=== PATIENT | female | born 1975 | race Caucasian/White ===

== ENCOUNTER 2024-02-11 19:07 | Emergency (ER) | payer MEDICAID, SELFPAY ==
[2024-02-11 19:07] VITALS: BMI 31.4
[2024-02-11 19:18] VITALS: BP 128/84; PULSE 109; RESP 18; TEMP 37.2; O2SAT 97
--- NOTE | 2024-02-11 19:37 | EDRME_ITS ---
Rapid Medical Screening Exam [facility] Arrival date/time: 02/11/24 19:07 49F with history of DM and recurrent skin abscesses presents to ED with abscess behind R ear for 3 days. Chief Complaint: Skin/Abscess/Foreign Body Vital signs: Vital Signs Temperature 98.9 F 02/11/24 19:18 Pulse Rate 109 H 02/11/24 19:18 Respiratory Rate 18 02/11/24 19:18 Blood Pressure 128/84 02/11/24 19:18 Pulse Oximetry (%) 97 02/11/24 19:18 Oxygen Delivery Method Room Air 02/11/24 19:18
--- NOTE | 2024-02-11 21:42 | XR_ITS ---
Examination: CT soft tissue neck, with intravenous contrast. 2-D coronal reconstructions. 2-D sagittal reconstructions. Date and time of exam :February 12, 2024 at 1228 hrs. Indications: Soft tissue swelling behind the right ear CTDI: vol (mGy):11.5 DLP: (mGycm):277 Technique: 1.25 mm axial sections of the neck of the obtained. Coronal and sagittal reconstructions have been obtained. Intravenous contrast administered 50 cc Isovue-370. Low dose protocols were performed. One or more of the following dose reduction techniques were used; automated exposure control, adjustment of the mA and/or KV according to patient size, use of iterative reconstruction technique. Findings: Extensive soft tissue infection posterior to the right ear and posterior to the right occipital bone The soft tissue infection extends up to the right parotid gland with multiple reactive lymph nodes in the right carotid triangle right submental right posterior cervical region this information does involve the right sternoclavicular muscle No yves cortical bone destruction Symmetrical nasopharynx oropharynx The larynx appears normal Impression: Extensive soft tissue infection primarily posterior to the right ear and posterior to the right occipital bone extending up to the right parotid gland with multiple reactive lymph nodes Recommend ultrasound soft tissue at this area of concern follow-up
--- NOTE | 2024-02-11 21:47 | EDNOTE_ITS ---
ED Skin Abcess FB-RME/HPI General Chief complaint: Skin/Abscess/Foreign Body Stated complaint: ABSCESS BEHIND RT EAR X 3DAYS Time Seen by Provider: 02/11/24 21:38 Arrival date/time: 02/11/24 19:07 RME / HPI RME / HPI narrative: 49-year-old female patient with significant history of diabetes mellitus, came in for evaluation regarding swelling and tenderness right postauricular area. This been ongoing for the last 3 days, getting worse, at this time associated with tenderness, not feeling well, and chills. Patient was seen by PCP yesterday and was started on clindamycin and Keflex. Patient been taking it with no relief. Patient denies any difficulty swallowing. Denies any other complaints or medications taken prior to arrival. Related Data Home Medications ?Medication ?Instructions ?Recorded ?Confirmed empagliflozin 25 mg tablet 25 mg PO QDAY 10/16/22 10/16/22 (Jardiance) Previous Rx's ?Medication ?Instructions ?Recorded clindamycin HCl 300 mg capsule 300 mg PO Q6H #30 caps 02/12/24 Allergies Allergy/AdvReac Type Severity Reaction Status Date / Time Penicillins Allergy Severe Hives Verified 10/16/22 10:20 sulfamethoxazole Allergy Severe Altered Verified 10/16/22 10:20 [From Bactrim] Sense of Taste trimethoprim [From Bactrim] Allergy Severe Altered Verified 10/16/22 10:20 Sense of Taste Review of Systems Review of Systems Narrative Review of Systems: Review of system reviewed and within normal limits except mentioned in HPI ED Exam Narrative Physical exam: VITAL SIGNS: Reviewed. GENERAL APPEARANCE: Alert and interactive, follows commands, no acute distress, HEAD AND FACE: 6 x 8 cm swelling, redness, postauricular area, with mild necrosis in the center, none crepitus with tenderness nonfluctuant ENT: PERRL, pink conjunctivitis, eyelid no trauma, Mucous membrane moist. NECK: Supple, nontender, no nuchal rigidity. CHEST: No tenderness, no crepitus, no paradoxical movement, no retractions. LUNGS: Clear, well ventilated, symmetric, no rales, no wheezing, no ronchi, no stridor, good breath sounds bilaterally. HEART: Regular rate, regular rhythm, no murmur, no gallops. ABDOMEN: Soft, positive bowel sounds, nondistended, no guarding, nontender, no rebound, no masses, RECTAL: Deferred. GENITAL: Deferred. NEUROLOGICAL: Gross motor function intact sensory function intact, Appropriate for age. MUSCULOSKELETAL: low back nontender, full range of motion. EXTREMITIES: Nontender, full range of motion. SKIN: Color pink, dry, no rash, no lacerations, no abrasions, no contusions. LYMPHATICS: Deferred. Course Quality Measures none Orders Category Date Time Status CT Screening NOW Care 02/11/24 21:43 Completed Incision and Drainage Set Up X1 Care 02/11/24 19:[address] head/brain wo con Stat Exams 02/11/24 23:[address] soft tissue neck w con Stat Exams 02/11/24 21:42 Completed Blood Culture (Lab) Stat Lab 02/11/24 22:02 Received CBC [CBC] Stat Lab 02/11/24 21:57 Completed CMP [Comprehensive Metabolic Panel] Stat Lab 02/11/24 21:57 Results CRP [C-Reactive Protein] Stat Lab 02/11/24 21:57 Results ESR [Sed Rate (ESR)] Stat Lab 02/11/24 21:57 Completed Lactate (Lactic Acid) Stat Lab 02/11/24 22:02 Completed Procalcitonin Stat Lab 02/11/24 21:57 Results Wound Culture and Gram Stain Stat Lab 02/12/24 07:29 Received HYDROcodone*/APAP 5/325 [[facility] 5/325] Med 02/12/24 00:06 Discontinued 1 tab PO X1 ONE Piper/Tazo 3.375 gm [Zosyn] Med 02/11/24 21:47 Discontinued 3.375 gm in 50 ml IV X1 Sodium Chloride 0.9% 1000 ml [Ns] 1,000 ml Med 02/12/24 02:58 Discontinued IV 999 mls/hr Vancomycin Inj 1,000 mg Med 02/11/24 21:45 Discontinued Sodium Chloride 0.9% 250 ml [Ns] 250 ml IV X1 Vital Signs Vital signs: Vital Signs Temperature 98.9 F 02/11/24 19:18 Pulse Rate 109 H 02/11/24 19:18 Respiratory Rate 18 02/11/24 19:18 Blood Pressure 128/84 02/11/24 19:18 Pulse Oximetry (%) 97 02/11/24 19:18 Oxygen Delivery Method Room Air 02/11/24 19:18 Skin / Abscess / Foreign Body MDM Narrative MDM Narrative:: 49-year-old female patient with significant history of diabetes mellitus, came in for evaluation regarding swelling and tenderness right postauricular area. This been ongoing for the last 3 days, getting worse, at this time associated with tenderness, not feeling well, and chills. Patient was seen by PCP yesterday and was started on clindamycin and Keflex. Patient been taking it with no relief. Patient denies any difficulty swallowing. Denies any other complaints or medications taken prior to arrival. Patient received IV vancomycin and IV Zosyn. Care transferred to Dr. Rodriguez for final management pending CT scan results Patient data External records reviewed:: None Clinical information provided by:: none Social determinants that could affect healthcare access:: none Patient has the following chronic illnesses:: Diabetes mellitus How is presenting disease/condition affected by chronic disease/condition?: uneffected by Evaluation data The following diagnostics were reviewed and interpreted by me:: lab results and radiology exam(s) Lab and/or radiology exams considered but not ordered:: None Interpretation Summary: Pending results Medications / Prescriptions Medications or Prescriptions considered but not ordered:: None Medication administrations:: Medication Administration History Discontinued Medications Hydrocodone Bitart/Acetaminophen (Hydrocodone/Apap 5/325 Tablet) 1 tab PO X1 ONE Stop: 02/12/24 00:07 Last Admin: 02/12/24 00:48 Dose: 1 tab Documented By: SARAH Vancomycin HCl 1,000 mg/ (Sodium Chloride) 250 mls @ 150 mls/hr IV X1 ONE Stop: 02/11/24 23:24 Last Infusion: 02/12/24 00:30 Dose: Infused Documented By: Admin: 02/11/24 22:43 Dose: 150 mls/hr Documented By: PRESTON Piperacillin/Tazobactam/Dextrose (Zosyn) 3.375 gm in 50 mls @ 100 mls/hr IV X1 ONE Stop: 02/11/24 22:16 Last Infusion: 02/11/24 22:42 Dose: Infused Documented By: Admin: 02/11/24 22:05 Dose: 100 mls/hr Documented By: PRESTON Sodium Chloride (Ns) 1,000 mls @ 999 mls/hr IV .Q1H1M ONE Stop: 02/12/24 03:58 Last Infusion: 02/12/24 06:00 Dose: Infused Documented By: Admin: 02/12/24 04:16 Dose: 999 mls/hr Documented By: IV Vanco and IV Zosyn. Was also given [facility] Mary and IV fluids Consultations Consultation(s) initiated? (list below): Yes Consultation #1 (Physician, Specialty, Details): Pending final disposition Diagnosis Skin/Abscess Differential Diagnosis: abscess of skin or subcutaneous tissue, cellulitis and contact dermatitis Most likely diagnosis given after review of the tests above:: Cellulitis/abscess postauricular area Admission Indicated Admission indicated?: not indicated Admission Request Was there a request for admission?: No Disposition Plan Disposition Plan: other (specify) Discharge Plan Plan Patient Disposition: HOME (Self Care) Patient condition on transfer: Stable Prescriptions/Referrals Prescriptions/Med Rec: New clindamycin HCl 300 mg capsule 300 mg PO Q6H Qty: 30 0RF No Action Jardiance 25 mg tablet 25 mg PO QDAY Referrals: Tee Belle MD [Primary Care Provider] - In 1 week Problem List Clinical Impression: Abscess Patient/Caregiver Discharge Instructions Education Materials: ED Abscess Antibiotic ... Print Language: French Stand Alone Forms: Leia Award Info., Patient Portal Info Letter
[2024-02-11] MEDS: PIPER/TAZO 3.375 GM 3.375 GM/50 ML BAG IV (22:05)
[2024-02-11 22:06] VITALS: BP 151/93; PULSE 102; RESP 20; TEMP 37.4; O2SAT 99
[2024-02-11 22:12] LABS: Lactate (Lactic Acid) 1.6 mMol/L (0.4-2.0)
[2024-02-11 22:18] LABS: Basophils % (Auto) 0 % (0-2.5); Eosinophils # (Auto) 0.1 Thou/mm3 (0.0-0.5); Eosinophils % (Auto) 0 % (0-10); Hematocrit 36.2 % (36.0-46.0); Hemoglobin 12.7 g/dL (12.0-16.0); Immature Granulocytes % (Auto) 1 % (0-0); Immature Granulocytes Auto 0.08 Thou/mm3 (0.00-0.00); Lymphocytes # (Auto) 1.2 Thou/mm3 (1.0-4.8); Lymphocytes % (Auto) 9 % (10-50); Mean Corpuscular HGB Conc 35.1 g/dl (31.0-37.0); Mean Corpuscular Hemoglobin 30.6 pg (25.0-35.0); Mean Corpuscular Volume 87 fL (80-100); Monocytes # (Auto) 1.2 Thou/mm3 (0.0-0.8); Monocytes % (Auto) 9 % (0-12); Neutrophils # (Auto) 11.5 Thou/mm3 (1.8-7.7); Neutrophils % (Auto) 82 % (37-80); Nucleated Red Blood Cell % 0 /100 WBC (0); Platelet Count 239 Thou/mm3 (140-440); RDW Standard Deviation 39.8 fL (36.4-46.3); Red Blood Count 4.15 Miln/mm3 (4.00-5.20); White Blood Count 14.1 Thou/mm3 (3.6-11.0)
[2024-02-11] MEDS: Vancomycin Inj 1,000 MG in SODIUM CHLORIDE 0.9% 250 ML 250 ML 150 MG IV (22:43)
[2024-02-11 23:00] LABS: Sed Rate (ESR) 105 mm/hr (0-30)
--- NOTE | 2024-02-11 23:06 | XR_ITS ---
Examination: CT brain head without contrast. 2-D sagittal coronal reconstructions Date and time of exam:February 12, 2024 0025 hrs. Indications: Redness swelling and pain behind the right ear beginning 4 days ago CTDI: vol (mGy):52.5 DLP: (mGycm):1042 Technique: Multiple CT axial sections of the brain have been obtained, 5 mm slice thickness. Contrast has not been administered. 2-D sagittal, coronal reconstructions have been obtained Low dose protocols were performed. One or more of the following dose reduction techniques were used; automated exposure control, adjustment of the mA and/or KV according to patient size, use of iterative reconstruction technique. Findings: No significant ventricular enlargement. Intra-axial or extra-axial hemorrhage density is not seen. No mass effect or midline shift Basal cisterns are not remarkable. Fourth ventricle is midline. Cranial vault intact. Extensive soft tissue swelling about the right ear, suspicious for early abscess axial image 39 in the soft tissue posterior to the right ear 17 x 12 mm Impression: Negative for acute hemorrhage, mass effect or midline shift Extensive cellulitis soft tissue swelling about the right ear, suspicious for early right ear abscess 17 x 20 mm, recommend ultrasound soft tissue at this area of concern follow-up
[2024-02-11 23:26] LABS: Alanine Aminotransferase 26 U/L (10-49); Albumin, Serum 4.4 gm/dL (3.5-5.0); Albumin/Globulin Ratio 1.3 (1.2-2.2); Alkaline Phosphatase 103 U/L (46-116); Anion Gap 9 (7-16); Aspartate Amino Transferase 23 U/L (0-34); BUN/Creatinine Ratio 18 Ratio (12-20); Bilirubin,Total 0.4 mg/dL (0.3-1.2); Blood Urea Nitrogen 14 mg/dL (9-23); Calcium 9.8 mg/dL (8.3-10.6); Calcium (Corrected) 9.8 mg/dL (8.5-10.1); Carbon Dioxide 22.9 mMol/L (20.0-31.0); Chloride 98 mMol/L (98-107); Creatinine (Component) 0.8 mg/dL (0.6-1.3); Estimated Creatinine Clearance 86.7 mL/min (>60); Globulin 3.4 gm/dL (2.3-3.5); Glucose 391 mg/dL (74-106); Osmolality,Calculated 277 (275-295); Potassium 3.7 mMol/L (3.4-5.1); Procalcitonin 0.07 ng/ml (0.0-0.49); Sodium 130 mMol/L (136-145); Total Protein 7.8 gm/dL (5.7-8.2); eGFR > 60 See Note
--- NOTE | 2024-02-11 23:50 | PC.NURSE ---
Pt reports to the er with c/o swelling behind the rt ear extending down to her neck for the past 3 days. Pt states she was seen by her primary dr and was given abx, but pt noted no relief. pt stats she symptoms of not feeling well and chills. pt presents to er able to speak full sentences, ginna any difficulty swallowing. pt placed on vital machine monitoring. pt updated on plan of care. Call light within reach.
[2024-02-12] MEDS: HYDROcodone/APAP 5/325 TABLET 1 TAB PO (00:48)
[2024-02-12 00:53] VITALS: BP 152/88; PULSE 104; RESP 16; TEMP 36.9; O2SAT 97
--- NOTE | 2024-02-12 01:28 | PRELIM_ITS ---
CT scan of the head without intravenous contrast (axial sections with sagittal and coronal reformats) February 12, 2024 0025 hoursClinical History: Right postauricular massComparison: No prior study is available for comparison. Findings:There is no evidence of intracranial hemorrhage, mass effect or mi dline shift. There is mild volume loss. Basal ganglia calcifications are present bilaterally. The cholo varium is unremarkable. There is partial opacification of the bilateral mastoid air cells. There is m ild mucosal thickening in the bilateral maxillary sinuses. The other visualized paranasal sinuses are clear. There is extensive cellulitis in the right preauricular region (partially imaged).Impression: No evidence of intracranial hemorrhage, mass effect or midline shift. Extensive cellulitis in the rig ht preauricular region as describedOther findings as described above. Report Electronically Signed Marck billings: Shane Ramos 02/12/2024 1:27:59 AM [EST]
--- NOTE | 2024-02-12 01:29 | PRELIM_ITS ---
CT scan of the neck with intravenous contrast (axial sections with sagittal and coronal reformats) No vember 2023 at 0028 hours Clinical History: Right postauricular swelling, tenderness and redness. Comparison: No prior study is available for comparison. Findings:The nasopharynx, oropharynx, hypoph arynx, supraglottic and infraglottic larynx, vocal cords and upper trachea are unremarkable. The epig lottis and aryepiglottic folds appear unremarkable.No enhancing lesion is identified. The vessels of the neck are well opacified. No filling defect is seen. Degenerative changes are identified in the sp ine. There is a complex hypodense fluid collection measuring 1.2 x 1 cm in the right sternocleidomast oid muscle (axial image 15/73), likely phlegmon/evolving abscess. There is extensive fat stranding an d edema in the posterior subcutaneous soft tissues of the right periauricular region and right mechanical technologist ior muscles of the neck. The right parotid gland appears edematous, likely reactive. There are multip le adjacent prominent lymph nodes , the largest measuring 1.1 x 0.7 cm (axial image 33/73). There is a subcentimeter calcification in the left lobe of thyroid. There is mild mucosal thickening in bilate ral maxillary sinuses.Impression:Findings suggestive of phlegmon/evolving abscess in the right sterno cleidomastoid muscle with adjacent cellulitis and reactive parotitis as described. No evidence of galina inable fluid collectionOther findings as described above. Discussion Details: Results verbally comm unicated to [facility] Charge Nurse at 04:27 AM ET 12/02/2024. A call back number is provided to f acilitate direct [id number] communication. Report Electronically Signed By: Shane Ramos 02/12/2024 1:29:05 AM [EST]
--- NOTE | 2024-02-12 02:52 | PD.EDADDENDU ---
Emergency Room Addendum <May Belle - Last Filed: 02/12/24 05:27> Addendum Narrative: 2300: Care assumed from Pancho Garcia NP. Past medical, surgical, social and family history reviewed. Vitals and home medications reviewed. Results and treatment plan discussed. I will assume the care of the patient at this time and will follow the patient, pending CTs, labs, and final disposition. Please refer to the emergency department record for history and examination from initial visit. Dr. Rodriguez's Note: RADIOLOGY RESULTS: [facility] Preliminary Report Draft Patient: ABDULAZIZ MOSELEY. Record#: [id number] Birthdate: 1975 Age/Sex: 49 / F Location: [facility] Attending Dr: Ordering Physician: Date of Service: Procedure(s): Accession Number(s): cc: ~ CT scan of the head without intravenous contrast (axial sections with sagittal and coronal reformats) February 12, 2024 0025 hours Clinical History: Right postauricular mass Comparison: No prior study is available for comparison. Findings: There is no evidence of intracranial hemorrhage, mass effect or midline shift. There is mild volume loss. Basal ganglia calcifications are present bilaterally. The calvarium is unremarkable. There is partial opacification of the bilateral mastoid air cells. There is mild mucosal thickening in the bilateral maxillary sinuses. The other visualized paranasal sinuses are clear. There is extensive cellulitis in the right preauricular region (partially imaged). Impression: No evidence of intracranial hemorrhage, mass effect or midline shift. Extensive cellulitis in the right preauricular region as described Other findings as described above. Report Electronically Signed By: Shane Ramos 02/12/2024 1:27:59 AM [EST] Telerad Preliminary Report Draft Patient: ABDULAZIZ MOSELEY. Record#: [id number] Birthdate: 1975 Age/Sex: 49 / F Location: [facility] Attending Dr: Ordering Physician: Date of Service: Procedure(s): Accession Number(s): cc: ~ CT scan of the neck with intravenous contrast (axial sections with sagittal and coronal reformats) February 12, 2024 at 0028 hours Clinical History: Right postauricular swelling, tenderness and redness. Comparison: No prior study is available for comparison. Findings: The nasopharynx, oropharynx, hypopharynx, supraglottic and infraglottic larynx, vocal cords and upper trachea are unremarkable. The epiglottis and aryepiglottic folds appear unremarkable. No enhancing lesion is identified. The vessels of the neck are well opacified. No filling defect is seen. Degenerative changes are identified in the spine. There is a complex hypodense fluid collection measuring 1.2 x 1 cm in the right sternocleidomastoid muscle (axial image 15/73), likely phlegmon/evolving abscess. There is extensive fat stranding and edema in the posterior subcutaneous soft tissues of the right periauricular region and right posterior muscles of the neck. The right parotid gland appears edematous, likely reactive. There are multiple adjacent prominent lymph nodes , the largest measuring 1.1 x 0.7 cm (axial image 33/73). There is a subcentimeter calcification in the left lobe of thyroid. There is mild mucosal thickening in bilateral maxillary sinuses. Impression: Findings suggestive of phlegmon/evolving abscess in the right sternocleidomastoid muscle with adjacent cellulitis and reactive parotitis as described. No evidence of drainable fluid collection Other findings as described above. Discussion Details: Results verbally communicated to [facility] Charge Nurse at 04:27 AM ET 12/02/2024. A call back number is provided to facilitate direct [id number] communication. Report Electronically Signed By: Shane Ramos 02/12/2024 1:29:05 AM [EST] <Petar Rodriguez MD - Last Filed: 02/12/24 05:27> Addendum Narrative: 2300: Care assumed from Pancho Garcia NP. Past medical, surgical, social and family history reviewed. Vitals and home medications reviewed. Results and treatment plan discussed. I will assume the care of the patient at this time and will follow the patient, pending CTs, labs, and final disposition. Please refer to the emergency department record for history and examination from initial visit. Dr. Rodriguez's Note: At 5:15 AM, I discussed this case with [facility] transfer center and she provided a ENT doctor who will look at her films and he will decide what to do with her. They will call us back and let us know. RADIOLOGY RESULTS: Teler[facility] Preliminary Report Draft Patient: ABDULAZIZ MOSELEY Record#: [id number] Birthdate: 1975 Age/Sex: 49 / F Location: [facility] Attending Dr: Ordering Physician: Date of Service: Procedure(s): Accession Number(s): cc: ~ CT scan of the head without intravenous contrast (axial sections with sagittal and coronal reformats) February 12, 2024 0025 hours Clinical History: Right postauricular mass Comparison: No prior study is available for comparison. Findings: There is no evidence of intracranial hemorrhage, mass effect or midline shift. There is mild volume loss. Basal ganglia calcifications are present bilaterally. The calvarium is unremarkable. There is partial opacification of the bilateral mastoid air cells. There is mild mucosal thickening in the bilateral maxillary sinuses. The other visualized paranasal sinuses are clear. There is extensive cellulitis in the right preauricular region (partially imaged). Impression: No evidence of intracranial hemorrhage, mass effect or midline shift. Extensive cellulitis in the right preauricular region as described Other findings as described above. Report Electronically Signed By: Shane Ramos 02/12/2024 1:27:59 AM [EST] Telerad Preliminary Report Draft Patient: ABDULAZIZ MOSELEY Record#: [id number] Birthdate: 1975 Age/Sex: 49 / F Location: [facility] Attending Dr: Ordering Physician: Date of Service: Procedure(s): Accession Number(s): cc: ~ CT scan of the neck with intravenous contrast (axial sections with sagittal and coronal reformats) February 12, 2024 at 0028 hours Clinical History: Right postauricular swelling, tenderness and redness. Comparison: No prior study is available for comparison. Findings: The nasopharynx, oropharynx, hypopharynx, supraglottic and infraglottic larynx, vocal cords and upper trachea are unremarkable. The epiglottis and aryepiglottic folds appear unremarkable. No enhancing lesion is identified. The vessels of the neck are well opacified. No filling defect is seen. Degenerative changes are identified in the spine. There is a complex hypodense fluid collection measuring 1.2 x 1 cm in the right sternocleidomastoid muscle (axial image 15/73), likely phlegmon/evolving abscess. There is extensive fat stranding and edema in the posterior subcutaneous soft tissues of the right periauricular region and right posterior muscles of the neck. The right parotid gland appears edematous, likely reactive. There are multiple adjacent prominent lymph nodes , the largest measuring 1.1 x 0.7 cm (axial image 33/73). There is a subcentimeter calcification in the left lobe of thyroid. There is mild mucosal thickening in bilateral maxillary sinuses. Impression: Findings suggestive of phlegmon/evolving abscess in the right sternocleidomastoid muscle with adjacent cellulitis and reactive parotitis as described. No evidence of drainable fluid collection Other findings as described above. Discussion Details: Results verbally communicated to [facility] Charge Nurse at 04:27 AM ET 12/02/2024. A call back number is provided to facilitate direct [id number] communication. Report Electronically Signed By: Shane Ramos 02/12/2024 1:29:05 AM [EST]
[2024-02-12] MEDS: SODIUM CHLORIDE 0.9% 1000 ML 1,000 ML 999 ML IV (04:16)
[2024-02-12 05:26] VITALS: BP 129/80; PULSE 99; RESP 17; TEMP 36.8; O2SAT 96
--- NOTE | 2024-02-12 06:30 | PC.NURSE ---
0343 MICHELLE CONTACTED , NO EMT SERVICES. 0400 [facility] CONTACTED PKT SENT, IMAGES PUSHED OVER.
--- NOTE | 2024-02-12 07:05 | PC.NURSE ---
Addendum entered by Milvia Wells RN 02/12/24 07:31: per report, pt is pending transfer for ENT specialist. Original Note: Report received from Kaela ACHARYA; per report, pt initial complaint of bump to R-side neck. Pt states that it's gotten worse since Thursday. CT imaging showed cellulitis on pt's R sternocleidomastoid. Pt has hx of DM and non-compliant with medications and unable to give accurate home meds list. Pt laying in bed quietly at this time;no acute distress noted.
--- NOTE | 2024-02-12 07:08 | EDNOTE_ITS ---
Emergency Room Addendum Addendum Narrative: 0600: Care assumed from Dr. Rodriguez, the previous shift emergency physician. Past medical, surgical, social and family history reviewed. Vitals and home medications reviewed. I will assume the care of the patient at this time, pending transfer for ENT services. Please refer to the emergency department record for history and examination from initial visit.? Nursing notes reviewed by me. Vital signs reviewed by me. [place] medical records reviewed by me. Per EMR review, patient has an abscess in the right sternocleidomastoid muscle with adjacent cellulitis. Txfer packet was sent to [facility] and Dr. Rodriguez discussed case with transfer nurse at 05:15am. State they will present the case to their ENT specialist and call back. 0700: At this time we are pending call back from [facility]. Patient resting comfortably. 0715: I spoke with ENT Dr. Mendez at [facility]. States there is no need for transfer the patient for surgical intervention. States the patient can be treated with antibiotics. However requested that we try to express, manually decompress, and send for wound cultures. 0725: Abscess was expressed as much as patient was able to tolerate. Wound culture was obtained. Patient will be discharged home with antibiotics. DISPOSITION: Home DIAGNOSIS: Abscess
[2024-02-12 07:15] VITALS: BP 106/62; PULSE 100; RESP 15; TEMP 37.6; O2SAT 95
--- NOTE | 2024-02-12 07:51 | PC.CM ---
[address] Canchola to confirm. Dr. Canchola confirmed that pt doesn't need transfer. Transfer is cancelled. [address] Meadows notes patient has an abscess in the right sternocleidomastoid muscle with adjacent cellulitis. I spoke with ENT Dr. Mendez at [facility]. States there is no need for transfer the patient for surgical intervention. States the patient can be treated with antibiotics. However requested that we try to express, manually decompress, and send for wound cultures. 0715 received call from charge nurse that pt needs to be transferred for abscess behind right ear needs ENT services. She also informed me that images was pushed over to [facility] by night charge nurse.
[2024-02-12 08:30] VITALS: BP 134/71; PULSE 100; RESP 15; TEMP 37.2; O2SAT 98
[2024-02-12 14:57] LABS: C-Reactive Protein 19.2 mg/dL (0.0-0.9)
== END 2024-02-12 08:33 | disposition home or self-care (01) ==
PROVIDERS: Nurse Practitioner Family; Emergency Provider Emergency Medicine; PCP Family Medicine
DX: H60.01 Abscess of right external ear (principal)
CPT/HCPCS: 36415; 70450; 70491; 80053; 83605; 84145; 85025; 85652; 86140; 87040; 87070; 87077; 87186; 87205; 96361; 96365; 96366; 96367; 99285; A4649; J2543; J3371; J7030; J7050; Q9967; A9270; J3370

== ENCOUNTER → 2024-04-01 | Outpatient (CLI) | payer MEDICAID, SELFPAY | END | disposition home or self-care (01) | PROVIDERS: Visit Provider Surgery | DX: L02.11 Cutaneous abscess of neck (principal); E11.622 Type 2 diabetes mellitus with other skin ulcer; M60.9 Myositis, unspecified; H70.91 Unspecified mastoiditis, right ear; Z79.4 Long term (current) use of insulin | CPT/HCPCS: 99203; G0463 ==